=== PATIENT | female | born 1990 | race Caucasian/White ===

== ENCOUNTER 2017-03-03 08:03 | Emergency (ER) | payer OTHER ==
[~2017-03-03] VITALS: Ht 157.5 cm; Wt 99.8 kg
[2017-03-03] MEDS ORDERED: ASPIRIN 81 MG TAB.CHEW PO ONE (08:15)
--- NOTE | 2017-03-03 08:26 | RAD ---
Single view of the Chest 03/03/2017 10:14 AM Indication: chest pain Comparison: None Findings: There is no focal consolidation or infiltrate identified. There is no effusion or pneumothorax. The cardiomediastinal silhouette and pulmonary vasculature are within normal limits. No osseous abnormality is identified. Impression: No evidence of acute cardiopulmonary process.
--- NOTE | 2017-03-03 08:45 | PHYS DOC ---
Past History Past Medical History: Other Additional Past Medical Histor: fatty liver disease, prediabetes and prehypertension Past Surgical History: Cholecystectomy, , Tubal ligation, Other Smoking: Non-smoker Alcohol Use: None Drug Use: None Adult General Chief Complaint Chief Complaint: CHEST PAIN [facility] HPI 26-year-old female patient she had left-sided jaw pain 4 days ago and was seen at [facility] and treated for dental infection with amoxicillin and Vicoprofen. Patient states she had multiple episodes of vomiting 3 days ago and diarrhea yesterday after taking pain medication on amoxicillin and a stop taking medication. Patient states she was seen by her dentist and had x-ray of her tooth without finding any abnormality in her teeth. Patient states the pain was gradually improved. Patient stated this morning she felt sudden onset of left-sided stabbing pain with radiation to her shoulder and left jaw as a constant pain that gradually getting worse. Patient stated the pain was 5/10 and increases to 9/10 at arrival to ER. Patient complaining of increasing pain with eating and holding her breath because of pain. Patient complaining of increasing nausea that she has had for the last 3 days without dizziness and palpitation and cough and congestion. Patient denies history of chest pain. Patient has positive family history of coronary artery disease. She denies history of DVT and PE or recent immobilization. Review of Systems Review of Systems Constitutional: Denies fever or chills [] Eyes: Denies change in visual acuity, redness, or eye pain [] HENT: Denies nasal congestion or sore throat [] Respiratory: Denies cough or shortness of breath [] Cardiovascular: No additional information not addressed in HPI [] GI: Denies abdominal pain, bloody stools, reports nausea vomiting and diarrhea : Denies dysuria or hematuria [] Musculoskeletal: Denies back pain or joint pain [] Integument: Denies rash or skin lesions [] Neurologic: Denies headache, focal weakness or sensory changes [] Endocrine: Denies polyuria or polydipsia [] All other systems were reviewed and found to be within normal limits, except as documented in this note. Current Medications Current Medications Current Medications Medications (Trade) Dose Ordered Sig/Earnestine Start Time Stop Time Status Last Admin Dose Admin Aspirin (Children'S Aspirin) 324 mg 1X ONCE 03/03/17 08:15 03/03/17 08:26 DC 03/03/17 08:22 324 MG Allergies Allergies Allergies Coded Allergies Type Severity Reaction Last Updated Verified acetaminophen Allergy Intermediate 03/03/17 Yes oxycodone Allergy Intermediate 03/03/17 Yes Physical Exam Physical Exam Constitutional: Well developed, well nourished, mild distress, non-toxic appearance, anxious HENT: Normocephalic, atraumatic, bilateral external ears normal, oropharynx moist, no oral exudates, nose normal. [] Eyes: PERRLA, EOMI, conjunctiva normal, no discharge. [] Neck: Normal range of motion, no tenderness, supple, no stridor. [] Cardiovascular:Heart rate regular rhythm, no murmur [] Lungs & Thorax: Bilateral breath sounds clear to auscultation [] Abdomen: Bowel sounds normal, soft, no tenderness, no masses, no pulsatile masses. [] Skin: Warm, dry, no erythema, no rash. [] Back: No tenderness, no CVA tenderness. [] Extremities: No tenderness, no cyanosis, no clubbing, ROM intact, no edema. [] Neurologic: Alert and oriented X 3, normal motor function, normal sensory function, no focal deficits noted. [] Psychologic: Affect normal, judgement normal, mood normal. [] Current Patient Data Vital Signs Vital Signs Date Time Temp Pulse Resp B/P (MAP) Pulse Ox O2 Delivery O2 Flow Rate FiO2 03/03/17 08:12 97.8 89 16 99 Room Air EKG EKG EKG interpreted by me. EKG at 0 816 showed normal sinus rhythm at rate of 82, no acute ST and T-wave elevation,[] Radiology/Procedures Radiology/Procedures [Chest x-ray and CT chest was unremarkable] Course & Med Decision Making Course & Med Decision Making Pertinent Labs and Imaging studies reviewed. (See chart for details) Evaluation of patient in ER showed 26-year-old male patient with complaining of left-sided chest pain that patient for shoulder and jaw. Patient had increasing of pain with movement of her shoulder. Patient had unremarkable labs elevation of d-dimer with negative CT of chest for PE. Patient treated with Toradol and felt better. Patient recently treated with amoxicillin and Vicoprofen for jaw pain and developed diarrhea and nausea and vomiting and stopped taking medication. She was with Toradol in ER and felt better. Plan discharge patient home with diagnosis of musculoskeletal chest wall pain and medication side effect. Patient doesn't want pain medication for home. [] Dragon Disclaimer Dragon Disclaimer This electronic medical record was generated, in whole or in part, using a voice recognition dictation system. Departure Departure: Impression: Primary Impression: Musculoskeletal chest pain Additional Impressions: Medication side effects Sprain of jaw, left side, initial encounter Disposition: HOME, SELF-CARE (@1059) Condition: IMPROVED Referrals: ERIKA OLIVAREZ MD (PCP) Patient Instructions: Musculoskeletal Pain Additional Instructions: Apply ice on your chest Take ibuprofen as needed for pain Follow-up with your primary care physician in 3-5 days if he is not getting better Problem Qualifiers THEODORE CHAKRABORTY MD Mar 03, 2017 08:45
[2017-03-03 08:47] LABS: BASO % 0 % (0-3); EOS % 1 % (0-3); HEMATOCRIT 39.5 % (36.0-47.0); LYMPH # 1.4 x10^3/uL (1.0-4.8); LYMPH % 23 % (24-48); MEAN CORPUSCULAR HEMOGLOBIN 32 pg (25-35); MEAN CORPUSCULAR HGB CONC 35 g/dL (31-37); MEAN CORPUSCULAR VOLUME 90 fL (79-100); MONO # 0.5 x10^3/uL (0.0-1.1); MONO % 8 % (0-9); NEUT # 4.1 x10^3uL (1.8-7.7); NEUT % 68 % (31-73); PLATELET COUNT 181 x10^3/uL (140-400); RED BLOOD COUNT 4.38 x10^6/uL (3.50-5.40); RED CELL DISTRIBUTION WIDTH 12.6 % (11.5-14.5)
[2017-03-03] MEDS ORDERED: KETOROLAC 30 MG/ML VIAL. IV ONE (09:00)
[2017-03-03 09:05] LABS: ALBUMIN 3.6 g/dL (3.4-5.0); ALBUMIN/GLOBULIN RATIO 0.9 (1.0-1.7); ALK PHOS 90 U/L (46-116); ALT (SGPT) 152 U/L (14-59); ANION GAP 10 (6-14); AST (SGOT) 77 U/L (15-37); BLOOD UREA NITROGEN 11 mg/dL (7-20); BUN/CREATININE RATIO 16 (6-20); CALCIUM 8.7 mg/dL (8.5-10.1); CARBON DIOXIDE 24 mmol/L (21-32); CHLORIDE 105 mmol/L (98-107); CREATINE KINASE 52 U/L (26-192); CREATININE 0.7 mg/dL (0.6-1.0); GFR 99.6; GLUCOSE 106 mg/dL (70-99); POTASSIUM 3.9 mmol/L (3.5-5.1); SODIUM 139 mmol/L (136-145); TOTAL BILIRUBIN 0.6 mg/dL (0.2-1.0); TOTAL PROTEIN 7.6 g/dL (6.4-8.2)
[2017-03-03] MEDS ORDERED: IOHEXOL 300 MG/ML 75 ML VIAL. IV ONE (10:00)
[2017-03-03] MEDS ORDERED: CONTRAST GIVEN MC PRN (10:00)
--- NOTE | 2017-03-03 10:41 | RAD ---
CTA of the chest with contrast (pulmonary embolism protocol) 03/03/2017 Clinical History: Chest pain and elevated d-dimer. Technique: After the intravenous administration of 75 mL of Omnipaque 300, contiguous, 0.625 mm axial sections were obtained through the chest. 2 mm reconstructed axial and 3D MIP coronal and sagittal reconstructed images were obtained. One or more of the following individualized dose reduction techniques were utilized for this study: 1. Automated exposure control. 2. Adjustment of the mA and/or kV according to patient size. 3. Use of iterative reconstruction technique. Findings: Comparison is made to patient's portable chest radiograph performed earlier today. No filling defects are seen within the major branches of either pulmonary artery. The heart is borderline enlarged. The thoracic aorta tapers normally. Minimal dependent subsegmental atelectasis is seen involving both lungs. A 3 mm calcified granuloma is seen involving the superior aspect of the left lower lobe. No area of consolidation is seen. No pneumothorax or pleural effusion is noted. Impression: There is no CT evidence of pulmonary embolism.
[2017-03-03 10:59] VITALS: BP 120/89
--- NOTE | 2017-03-03 11:55 | EKG ---
[address] [address] Test Date: 2017-03-03 Test Time: 08:16:25 Pat Name: KHADAR SULLIVAN Department: Room: Gender: F Revit Drafter: MARILEE : 1990 Requested By: THEODORE CHAKRABORTY Order Number: [id number] Reading MD: Measurements Intervals [place] Rate: 82 P: 61 W[place]: 144 QRS: 49 QRSD: 76 T: 18 QT: 378 QTc: 445 Interpretive Statements SINUS RHYTHM QRS(T) CONTOUR ABNORMALITY CONSIDER INFERIOR MYOCARDIAL DAMAGE POSSIBLY ABNORMAL ECG RI6.01 Unconfirmed report No previous ECG available for comparison
== END 2017-03-03 11:04 | disposition home or self-care (01) ==
LOC: ER 08:03
DX: R11.2 Nausea with vomiting, unspecified (principal); R19.7 Diarrhea, unspecified; T36.0X5A Adverse effect of penicillins, initial encounter; T39.315A Adverse effect of propionic acid derivatives, initial encounter; S03.42XA Sprain of jaw, left side, initial encounter; R07.89 Other chest pain; Z88.6 Allergy status to analgesic agent; Z88.5 Allergy status to narcotic agent; X58.XXXA Exposure to other specified factors, initial encounter; Y93.89 Activity, other specified; Y99.8 Other external cause status; Y92.89 Other specified places as the place of occurrence of the external cause
CPT/HCPCS: 36415; 71010; 71275; 80053; 82553; 83735; 83880; 84484; 85025; 85379; 93005; 96374; 99285; J1885; Q9967

== ENCOUNTER 2019-03-27 08:44 | Emergency (ER) | payer OTHER ==
[~2019-03-27] VITALS: Ht 157.5 cm; Wt 61.7 kg
[2019-03-27] MEDS ORDERED: ONDANSETRON PF 4 MG/2 ML VIAL. IVP ONE (09:15)
[2019-03-27] MEDS ORDERED: IV NORMAL SALINE 1,000ML 1,000 ML IV ONE (09:15)
--- NOTE | 2019-03-27 09:39 | PHYS DOC ---
Past History Past Medical History: Anxiety, Depression, GERD Additional Past Medical Histor: fatty liver disease, prediabetes and prehypertension Past Surgical History: , Other Additional Past Surgical Histo: gastic bypass, uterine ablation Smoking: Non-smoker Alcohol Use: None Drug Use: None Adult General Chief Complaint Chief Complaint: NAUSEA/VOMITING/DIARRHEA HPI HPI 28-year-old female presents with nausea and vomiting. Patient has a gastric sleeve 2 years ago. She has had difficulty with heartburn and vomiting since that time. She takes Zofran frequently. She's been unable to keep down her Zofran and other solids and liquids since yesterday and decided to come emergency room. She denies fever or chills. She has had some congestion and a cough. She denies diarrhea. She denies any other complaints at this time. Review of Systems Review of Systems Constitutional: Denies fever or chills [] Eyes: Denies change in visual acuity, redness, or eye pain [] HENT: Denies nasal congestion or sore throat [] Respiratory: Denies cough or shortness of breath [] Cardiovascular: No additional information not addressed in HPI [] GI: nausea, vomiting. Denies abdominal pain, bloody stools or diarrhea [] : Denies dysuria or hematuria [] Musculoskeletal: Denies back pain or joint pain [] Integument: Denies rash or skin lesions [] Neurologic: Denies headache, focal weakness or sensory changes [] Endocrine: Denies polyuria or polydipsia [] All other systems were reviewed and found to be within normal limits, except as documented in this note. Current Medications Current Medications Current Medications Medications (Trade) Dose Ordered Sig/Earnestine Start Time Stop Time Status Last Admin Dose Admin Ondansetron HCl (Zofran) 4 mg 1X ONCE 03/27/19 09:15 03/27/19 09:16 DC 03/27/19 09:35 4 MG Sodium Chloride 1,000 ml @ 1,000 mls/hr 1X ONCE 03/27/19 09:15 03/27/19 10:14 03/27/19 09:34 1,000 MLS/HR Allergies Allergies Allergies Coded Allergies Type Severity Reaction Last Updated Verified acetaminophen Allergy Intermediate 03/03/17 Yes amoxicillin Allergy Intermediate nausea/vomitting 04/21/18 Yes oxycodone Allergy Intermediate 03/03/17 Yes Physical Exam Physical Exam Constitutional: Well developed, well nourished, no acute distress, non-toxic appearance. [] HENT: Normocephalic, atraumatic, bilateral external ears normal, oropharynx moist, no oral exudates, nose normal. [] Eyes: PERRLA, EOMI, conjunctiva normal, no discharge. [] Neck: Normal range of motion, no tenderness, supple, no stridor. [] Cardiovascular:Heart rate regular rhythm, no murmur [] Lungs & Thorax: Bilateral breath sounds clear to auscultation [] Abdomen: Bowel sounds normal, soft, no tenderness, no masses, no pulsatile masses. [] Skin: Warm, dry, no erythema, no rash. [] Back: No tenderness, no CVA tenderness. [] Extremities: No tenderness, no cyanosis, no clubbing, ROM intact, no edema. [] Neurologic: Alert and oriented X 3, normal motor function, normal sensory function, no focal deficits noted. [] Psychologic: Affect normal, judgement normal, mood normal. [] Current Patient Data Vital Signs Vital Signs Date Time Temp Pulse Resp B/P (MAP) Pulse Ox O2 Delivery O2 Flow Rate FiO2 03/27/19 09:08 97.6 80 18 98 Room Air EKG EKG [] Radiology/Procedures Radiology/Procedures [] Course & Med Decision Making Course & Med Decision Making Pertinent Labs and Imaging studies reviewed. (See chart for details) The patient's labs are unremarkable. We have given her a liter normal saline and 4 mg of Zofran IV. We will do a by mouth challenge. I also ordered 40 mg of Protonix IV as the patient cannot take PPI occasions by mouth because capsules make her vomit. She takes all of her medications as liquid. The patient has been able to keep down fluids. She feels a bit better at this time. I will discharge her with Zofran ODT instead of tablets. Her urinalysis is unremarkable. She is stable for discharge at this time. [] Dragon Disclaimer Dragon Disclaimer This electronic medical record was generated, in whole or in part, using a voice recognition dictation system. Departure Departure: Impression: Primary Impression: Nausea & vomiting Additional Impression: GERD (gastroesophageal reflux disease) Disposition: 01 HOME, SELF-CARE Condition: IMPROVED Referrals: ERIKA OLIVAREZ MD (PCP) Patient Instructions: Gastroesophageal Reflux Disease, Adult, [id number], Nausea and Vomiting, [id number] Scripts Ondansetron (ONDANSETRON ODT) 4 Mg Tab.rapdis 1 TAB PO PRN Q6-8HRS PRN for VOMITING, #16 TAB Prov: MINDA SNOWDEN DO 03/27/19 Problem Qualifiers Primary Impression: Nausea & vomiting Vomiting type: unspecified Vomiting Intractability: non-intractable Qualified Codes: R11.2 - Nausea with vomiting, unspecified Additional Impression: GERD (gastroesophageal reflux disease) Esophagitis presence: with esophagitis Qualified Codes: K21.0 - Gastro- esophageal reflux disease with esophagitis MINDA SNOWDEN DO Mar 27, 2019 09:39
[2019-03-27 09:41] LABS: BASO % 1 % (0-3); EOS # 0.1 x10^3/uL (0.0-0.7); EOS % 1 % (0-3); HEMATOCRIT 40.2 % (36.0-47.0); HEMOGLOBIN 14.2 g/dL (12.0-15.5); LYMPH # 2.1 x10^3/uL (1.0-4.8); LYMPH % 29 % (24-48); MEAN CORPUSCULAR HEMOGLOBIN 33 pg (25-35); MEAN CORPUSCULAR HGB CONC 35 g/dL (31-37); MEAN CORPUSCULAR VOLUME 92 fL (79-100); MONO # 0.4 x10^3/uL (0.0-1.1); MONO % 5 % (0-9); NEUT # 4.6 x10^3uL (1.8-7.7); NEUT % 64 % (31-73); PLATELET COUNT 188 x10^3/uL (140-400); RED BLOOD COUNT 4.35 x10^6/uL (3.50-5.40); RED CELL DISTRIBUTION WIDTH 12.7 % (11.5-14.5); WHITE BLOOD COUNT 7.1 x10^3/uL (4.0-11.0)
[2019-03-27 09:48] LABS: CALCIUM 8.5 mg/dL (8.5-10.1); CREATININE 0.7 mg/dL (0.6-1.0); GFR 98.3; POTASSIUM 3.7 mmol/L (3.5-5.1)
[2019-03-27 09:53] LABS: ALBUMIN 3.8 g/dL (3.4-5.0); ALBUMIN/GLOBULIN RATIO 1.1 (1.0-1.7); TOTAL BILIRUBIN 0.8 mg/dL (0.2-1.0); TOTAL PROTEIN 7.2 g/dL (6.4-8.2)
[2019-03-27] MEDS ORDERED: ONDA4TAB12 PO (10:00)
[2019-03-27 10:09] LABS: BACTERIA,URINE FEW /HPF (0-FEW); BILIRUBIN,URINE NEG (NEG); CLARITY,URINE HAZY; COLOR,URINE YELLOW; GLUCOSE,URINE NEG (NEG); NITRITE,URINE NEG (NEG); SQUAMOUS EPITHELIAL CELL,UR MANY /LPF; UROBILINOGEN,URINE 0.2 mg/dL (0.2 mg/dL)
[2019-03-27] MEDS ORDERED: PANTOPRAZOLE IV 40 MG VIAL. IVP ONE (10:15)
[2019-03-27 10:32] VITALS: BP 114/72
== END 2019-03-27 10:30 | disposition home or self-care (01) ==
LOC: ER 08:44
DX: K21.0 Gastro-esophageal reflux disease with esophagitis (principal); R11.2 Nausea with vomiting, unspecified; Z98.84 Bariatric surgery status; Z88.6 Allergy status to analgesic agent; Z88.1 Allergy status to other antibiotic agents; Z88.5 Allergy status to narcotic agent
CPT/HCPCS: 36415; 80053; 81001; 85025; 96361; 96374; 96375; 99284; C9113; J2405; J7030

== ENCOUNTER 2019-10-22 15:03 | Emergency (ER) | payer OTHER ==
[~2019-10-22] VITALS: Ht 157.5 cm; Wt 70.9 kg
[~2019-10-22 15:03] MED LIST: ONDA4TAB12 PO
[2019-10-22 16:07] LABS: BACTERIA,URINE 0 /HPF (0-FEW); BILIRUBIN,URINE NEG (NEG); CLARITY,URINE CLEAR; COLOR,URINE YELLOW; GLUCOSE,URINE NEG (NEG); NITRITE,URINE NEG (NEG); RBC,URINE 0 /HPF (0-2); SQUAMOUS EPITHELIAL CELL,UR MOD /LPF; UROBILINOGEN,URINE 0.2 mg/dL (0.2 mg/dL); WBC,URINE 0 /HPF (0-4)
--- NOTE | 2019-10-22 16:44 | PHYS DOC ---
Past History Past Medical History: Anxiety, Depression, GERD, Kidney Stones Additional Past Medical Histor: fatty liver disease Past Surgical History: , Other Additional Past Surgical Histo: gastic SLEEVE, uterine ablation Smoking: Non-smoker Alcohol Use: Occasionally Drug Use: None General Adult EDM: Chief Complaint: BACK PAIN OR INJURY HPI: HPI: The history was obtained from the patient. Patient is a 28-year-old female with PMH endometrial ablation, intermittent urticaria who presents with a chief complaint of right flank pain. Patient states she typically gets right flank pain after she stops taking steroids. She notes that she has been intermittently on steroids over the past several months due to intermittent rashes. She states she has had a fairly extensive work-up including autoimmune evaluation without identifiable cause. She notes that she did develop somewhat of a rash 2 days ago and started taking steroids at home. She states she subsequently developed right flank pain yesterday. She notes the pain is somewhat constant. She states nothing seems to help with the pain. She has tried Tylenol only given her history of gastric bypass. She denies any syncope. She notes a history of kidney stone but but states she was asymptomatic when she was diagnosed with this. She denies any dysuria or hematuria. She denies any vaginal bleeding or discharge. She states she is not regularly menstruate. She denies any cough or shortness of breath. She denies any chest pain or syncope. No other complaints. Review of Systems: Review of Systems: Constitutional: Denies fever or chills Eyes: Denies change in visual acuity HENT: Denies nasal congestion or sore throat Respiratory: Denies cough or shortness of breath Cardiovascular: Denies chest pain or edema GI: Denies abdominal pain, nausea, vomiting, bloody stools or diarrhea : Denies dysuria Musculoskeletal: Positive for flank pain Integument: Denies rash Neurologic: Denies headache, focal weakness or sensory changes Endocrine: Denies polyuria or polydipsia Lymphatic: Denies swollen glands Psychiatric: Denies depression or anxiety Heart Score: Risk Factors: Risk Factors: DM, Current or recent (<one month) smoker, HTN, HLP, family history of CAD, obesity. Risk Scores: Score 0 - 3: 2.5% MACE over next 6 weeks - Discharge Home Score 4 - 6: 20.3% MACE over next 6 weeks - Admit for Clinical Observation Score 7 - 10: 72.7% MACE over next 6 weeks - Early Invasive Strategies Current Medications: Current Meds: Current Medications Medications (Trade) Dose Ordered Sig/[facility] Start Time Stop Time Status Last Admin Dose Admin Iohexol (Omnipaque 300 Mg/ml) 75 ml 1X ONCE 10/22/19 16:45 10/22/19 16:46 Morphine Sulfate (Morphine 4mg Syringe) 4 mg 1X ONCE 10/22/19 16:45 10/22/19 16:46 Sodium Chloride 1,000 ml @ 1,000 mls/hr 1X ONCE 10/22/19 16:45 10/22/19 17:44 Allergies: Allergies: Allergies Coded Allergies Type Severity Reaction Last Updated Verified amoxicillin Allergy Intermediate nausea/vomitting 04/21/18 Yes oxycodone Allergy Intermediate 03/03/17 Yes Physical Exam: PE: Constitutional: Well developed, well nourished, no acute distress, non-toxic appearance. [] HENT: Normocephalic, atraumatic, bilateral external ears normal, oropharynx moist, no oral exudates, nose normal. [] Eyes: PERRLA, EOMI, conjunctiva normal, no discharge. [] Neck: Normal range of motion, no tenderness, supple, no stridor. [] Cardiovascular:Heart rate regular rhythm, no murmur [] Lungs & Thorax: Bilateral breath sounds clear to auscultation [] Abdomen: soft, no tenderness, no masses, no pulsatile masses. [] Skin: Warm, dry, no erythema, no rash. [] Back: Mild reproducible right CVA tenderness. My back exam Extremities: No tenderness, no cyanosis, no clubbing, ROM intact, no edema. [] Neurologic: Alert and oriented X 3, normal motor function, normal sensory function, no focal deficits noted. [] Psychologic: Affect normal, judgement normal, mood normal. [] Current Patient Data: Labs: Laboratory Tests Test 10/22/19 15:25 10/22/19 15:38 10/22/19 16:42 Urine Collection Type Unknown Urine Color Yellow Urine Clarity Clear Urine pH 6.5 Urine Specific [place] 1.010 Urine Protein Neg Urine Glucose (UA) Neg mg/dL Urine Ketones (Stick) Trace mg/dL Urine Blood Neg Urine Nitrite Neg Urine Bilirubin Neg Urine Urobilinogen Dipstick 0.2 mg/dL Urine Leukocyte Esterase Neg Urine RBC 0 /HPF Urine WBC 0 /HPF Urine Squamous Epithelial Cells Mod /LPF Urine Bacteria 0 /HPF Bedside Urine HCG, Qualitative hcg negative White Blood Count 8.8 x10^3/uL Red Blood Count 4.37 x10^6/uL Hemoglobin 14.2 g/dL Hematocrit 40.5 % Mean Corpuscular Volume 93 fL Mean Corpuscular Hemoglobin 33 pg Mean Corpuscular Hemoglobin Concent 35 g/dL Red Cell Distribution Width 12.9 % Platelet Count 239 x10^3/uL Neutrophils (%) (Auto) 92 % Lymphocytes (%) (Auto) 7 % Monocytes (%) (Auto) 1 % Eosinophils (%) (Auto) 0 % Basophils (%) (Auto) 0 % Neutrophils # (Auto) 8.1 x10^3uL Lymphocytes # (Auto) 0.6 x10^3/uL Monocytes # (Auto) 0.1 x10^3/uL Eosinophils # (Auto) 0.0 x10^3/uL Basophils # (Auto) 0.0 x10^3/uL Platelet Estimate Pending Sodium Level 140 mmol/L Potassium Level 3.8 mmol/L Chloride Level 104 mmol/L Carbon Dioxide Level 24 mmol/L Anion Gap 12 Blood Urea Nitrogen 4 mg/dL Creatinine 0.9 mg/dL Estimated GFR (Cockcroft-Gault) 73.5 Glucose Level 116 mg/dL Calcium Level 8.8 mg/dL Total Bilirubin 0.4 mg/dL Direct Bilirubin 0.1 mg/dL Aspartate Amino Transf (AST/SGOT) 15 U/L Alanine Aminotransferase (ALT/SGPT) 18 U/L Alkaline Phosphatase 80 U/L Total Protein 7.7 g/dL Albumin 3.7 g/dL Lipase 93 U/L Current Medications Medications (Trade) Dose Ordered Sig/Earnestine Route PRN Reason Start Time Stop Time Status Last Admin Dose Admin Sodium Chloride 1,000 ml @ 1,000 mls/hr 1X ONCE IV 10/22/19 16:45 10/22/19 17:44 10/22/19 16:44 Morphine Sulfate (Morphine 4mg Syringe) 4 mg 1X ONCE IV 10/22/19 16:45 10/22/19 16:46 DC 10/22/19 16:42 Iohexol (Omnipaque 300 Mg/ml) 75 ml 1X ONCE IV 10/22/19 16:45 10/22/19 16:46 DC 10/22/19 16:48 Laboratory Tests Test 10/22/19 15:25 10/22/19 15:38 Urine Collection Type Unknown Urine Color Yellow Urine Clarity Clear Urine pH 6.5 Urine Specific [place] 1.010 Urine Protein Neg (NEG-TRACE) Urine Glucose (UA) Neg mg/dL (NEG) Urine Ketones (Stick) Trace mg/dL (NEG) Urine Blood Neg (NEG) Urine Nitrite Neg (NEG) Urine Bilirubin Neg (NEG) Urine Urobilinogen Dipstick 0.2 mg/dL (0.2 mg/dL) Urine Leukocyte Esterase Neg (NEG) Urine RBC 0 /HPF (0-2) Urine WBC 0 /HPF (0-4) Urine Squamous Epithelial Cells Mod /LPF Urine Bacteria 0 /HPF (0-FEW) POC Urine HCG, Qualitative hcg negative (Negative) Vital Signs: Vital Signs Date Time Temp Pulse Resp B/P (MAP) Pulse Ox O2 Delivery O2 Flow Rate FiO2 10/22/19 15:15 98.1 75 20 111/69 (83) 98 Room Air EKG: EKG: [] Radiology/Procedures: Radiology/Procedures: [][address] [address] IMAGING REPORT Signed PATIENT: KHADAR SULLIVAN ACCOUNT: [id number] : 1990 LOCATION: ER AGE: 28 SEX: F EXAM STATUS: REG ER ORD. PHYSICIAN: ILIANA WALLACE DO REASON: right flank pain PROCEDURE: CT ABD PELV W/ IV CONTRST ONLY PQRS Compliance Statement: One or more of the following individualized dose reduction techniques were utilized for this examination: 1. Automated exposure control 2. Adjustment of the mA and/or kV according to patient size 3. Use of iterative reconstruction technique CT abdomen/pelvis with contrast 10/22/2019 4:25 PM INDICATION: Right flank pain COMPARISON: None available TECHNIQUE: Multiple axial CT images of the abdomen and pelvis were obtained after the intravenous administration of Isovue-370. Coronal and sagittal reformats are provided. FINDINGS: Lung bases are clear. Heart size is within normal limits. Liver, spleen, bilateral adrenal glands, and pancreas are normal in appearance. Gallbladder surgically absent. Abdominal aorta is normal in course and caliber. No pathologically enlarged lymph nodes are identified in abdomen and pelvis. There is no free fluid or free intraperitoneal air. Small and large bowel loops are normal in appearance and caliber. No bowel obstruction or inflammation. Appendix is normal. Kidneys enhance symmetrically. No suspicious renal mass. No calculi are identified in the kidneys, ureters or urinary bladder. Urinary bladder is within normal limits given degree of distention. Uterus and adnexa are normal by CT. Rim-enhancing cyst in the left adnexa measures 1.5 x 1.0 cm suggestive of a corpus luteal cyst. Dropped clips identified in the left paracolic gutter. 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 IMPRESSION: 1. There is a corpus luteal cyst identified in the left adnexa measuring 1.5 x 1.0 cm. No significant free fluid or free intraperitoneal air. 2. 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 No acute fractures identified. 3. Appendix is normal in appearance. No hydronephrosis or obstructive uropathy. Electronically signed by: Neymar Whitaker MD (10/22/2019 5:21 PM) [facility] DICTATED AND SIGNED BY: NEYMAR WHITAKER MD DATE: 10/22/19 172 CC: GARRY MUSTAFA MD; ILIANA WALLACE DO ~ Course & Med Decision Making: Course & Med Decision Making Pertinent Labs and Imaging studies reviewed. (See chart for details) Patient is a 28-year-old female presents with chief complaint of right flank pain. Initial vital signs unremarkable. Exam noted above. Urinalysis shows no evidence of infection. CT imaging shows no signs of kidney stone. Furthermore no evidence of acute etiology regarding her symptoms. Identified ovarian cyst and was relayed to the patient. I do suspect that this is not causing her symptoms. Remainder of work-up is been unremarkable. Patient states that her pain has improved significantly with medication. She is requesting discharge home. I do feel this is overall reasonable. Low suspicion for emergent etiology although the exact cause of her symptoms are unknown. She does state that she has a history of similar symptoms with her steroid usage. Given her history of gastric bypass I encouraged her to continue to take Tylenol. She states muscle relaxants and Lidoderm patches did not help at home therefore this would not be prescribed. Return precautions discussed and understood. Instructed to follow-up with her primary care physician in the next 2 to 3 days. Stable for discharge home. Nery Disclaimer: Nery Disclaimer: This electronic medical record was generated, in whole or in part, using a voice recognition dictation system. Departure Departure: Impression: Primary Impression: Right flank pain Disposition: 01 HOME/RESIDENCE PRIOR TO ADM Condition: STABLE Referrals: GARRY MUSTAFA MD (PCP) Additional Instructions: Please return the emergency department in 24 to 36 hours if her symptoms not improve or worsen. Please follow-up with your primary care physician in the next 2 to 3 days. Justification of Admission: Justification of Admission: Justification of Admission Dx: N/A ILIANA WALLACE DO Oct 22, 2019 16:44
[2019-10-22] MEDS ORDERED: IOHEXOL 300 MG/ML 75 ML VIAL. IV ONE (16:45)
[2019-10-22] MEDS ORDERED: IV NORMAL SALINE 1,000ML 1,000 ML IV ONE (16:45)
[2019-10-22] MEDS ORDERED: MORPHINE SULFATE 4 MG/ML DISP.SYRIN. IV ONE (16:45)
[2019-10-22 16:58] VITALS: BP 99/54
[2019-10-22 17:08] LABS: BASO % 0 % (0-3); EOS % 0 % (0-3); HEMATOCRIT 40.5 % (36.0-47.0); HEMOGLOBIN 14.2 g/dL (12.0-15.5); LYMPH # 0.6 x10^3/uL (1.0-4.8); LYMPH % 7 % (24-48); MEAN CORPUSCULAR HEMOGLOBIN 33 pg (25-35); MEAN CORPUSCULAR HGB CONC 35 g/dL (31-37); MEAN CORPUSCULAR VOLUME 93 fL (79-100); MONO # 0.1 x10^3/uL (0.0-1.1); MONO % 1 % (0-9); NEUT # 8.1 x10^3uL (1.8-7.7); NEUT % 92 % (31-73); PLATELET COUNT 239 x10^3/uL (140-400); RED BLOOD COUNT 4.37 x10^6/uL (3.50-5.40); RED CELL DISTRIBUTION WIDTH 12.9 % (11.5-14.5); WHITE BLOOD COUNT 8.8 x10^3/uL (4.0-11.0)
[2019-10-22 17:11] LABS: CALCIUM 8.8 mg/dL (8.5-10.1); CREATININE 0.9 mg/dL (0.6-1.0); GFR 73.5; POTASSIUM 3.8 mmol/L (3.5-5.1)
[2019-10-22 17:19] LABS: ALBUMIN 3.7 g/dL (3.4-5.0); DIRECT BILIRUBIN 0.1 mg/dL (0.0-0.2); TOTAL BILIRUBIN 0.4 mg/dL (0.2-1.0); TOTAL PROTEIN 7.7 g/dL (6.4-8.2)
--- NOTE | 2019-10-22 17:24 | RAD ---
PQRS Compliance Statement: One or more of the following individualized dose reduction techniques were utilized for this examination: 1. Automated exposure control 2. Adjustment of the mA and/or kV according to patient size 3. Use of iterative reconstruction technique CT abdomen/pelvis with contrast 10/22/2019 4:25 PM INDICATION: Right flank pain COMPARISON: None available TECHNIQUE: Multiple axial CT images of the abdomen and pelvis were obtained after the intravenous administration of Isovue-370. Coronal and sagittal reformats are provided. FINDINGS: Lung bases are clear. Heart size is within normal limits. Liver, spleen, bilateral adrenal glands, and pancreas are normal in appearance. Gallbladder surgically absent. Abdominal aorta is normal in course and caliber. No pathologically enlarged lymph nodes are identified in abdomen and pelvis. There is no free fluid or free intraperitoneal air. Small and large bowel loops are normal in appearance and caliber. No bowel obstruction or inflammation. Appendix is normal. Kidneys enhance symmetrically. No suspicious renal mass. No calculi are identified in the kidneys, ureters or urinary bladder. Urinary bladder is within normal limits given degree of distention. Uterus and adnexa are normal by CT. Rim-enhancing cyst in the left adnexa measures 1.5 x 1.0 cm suggestive of a corpus luteal cyst. Dropped clips identified in the left paracolic gutter. 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 IMPRESSION: 1. There is a corpus luteal cyst identified in the left adnexa measuring 1.5 x 1.0 cm. No significant free fluid or free intraperitoneal air. 2. 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 No acute fractures identified. 3. Appendix is normal in appearance. No hydronephrosis or obstructive uropathy. Electronically signed by: Ximena Maza MD (10/22/2019 5:21 PM) [facility]
[2019-10-22 18:36] LABS: % LYMPHS 8 % (24-48); % MONOS 1 % (0-10); % SEGS 91 % (35-66); PLT ESTIMATE ADEQUATE (ADEQUATE)
== END 2019-10-22 18:05 | disposition home or self-care (01) ==
LOC: ER 15:03
DX: R10.9 Unspecified abdominal pain (principal); R21 Rash and other nonspecific skin eruption; K21.9 Gastro-esophageal reflux disease without esophagitis; Z87.442 Personal history of urinary calculi; Z98.890 Other specified postprocedural states; Z88.1 Allergy status to other antibiotic agents; Z88.5 Allergy status to narcotic agent
CPT/HCPCS: 36415; 74177; 80048; 80076; 81001; 81025; 83690; 85007; 85025; 96361; 96374; 99285; J2270; J7030; Q9967

== ENCOUNTER 2019-12-06 18:31 | Emergency (ER) | payer OTHER ==
[~2019-12-06] VITALS: Ht 157.5 cm; Wt 75.0 kg
[2019-12-06] MEDS ORDERED: KETOROLAC 30 MG/ML VIAL. IM ONE (19:30)
[2019-12-06] MEDS ORDERED: KETOROLAC 30 MG/ML VIAL. ONE (19:38)
[2019-12-06 20:09] LABS: BILIRUBIN,URINE NEG (NEG); CLARITY,URINE CLEAR; COLOR,URINE YELLOW; GLUCOSE,URINE NEG (NEG)
[2019-12-06 20:10] LABS: NITRITE,URINE NEG (NEG)
[2019-12-06 20:16] LABS: RBC,URINE 0 /HPF (0-2)
[2019-12-06 20:17] LABS: BACTERIA,URINE 0 /HPF (0-FEW); WBC,URINE 0 /HPF (0-4)
--- NOTE | 2019-12-06 20:19 | PHYS DOC ---
Past History Past Medical History: Other Additional Past Medical Histor: chronic idiopathic urticaria with angioedema Past Surgical History: Tubal ligation Additional Past Surgical Histo: cervical ablation, gastric sleeve Smoking: Non-smoker Alcohol Use: Rarely Drug Use: None General Adult EDM: Chief Complaint: FEVER HPI: HPI: Patient is a [age] year old [sex] who presents with [] Review of Systems: Review of Systems: Constitutional: Denies fever or chills Eyes: Denies change in visual acuity HENT: Denies nasal congestion or sore throat Respiratory: Denies cough or shortness of breath Cardiovascular: Denies chest pain or edema GI: Denies abdominal pain, nausea, vomiting, bloody stools or diarrhea : Denies dysuria Musculoskeletal: Denies back pain or joint pain Integument: Denies rash Neurologic: Denies headache, focal weakness or sensory changes Endocrine: Denies polyuria or polydipsia Lymphatic: Denies swollen glands Psychiatric: Denies depression or anxiety Heart Score: Risk Factors: Risk Factors: DM, Current or recent (<one month) smoker, HTN, HLP, family history of CAD, obesity. Risk Scores: Score 0 - 3: 2.5% MACE over next 6 weeks - Discharge Home Score 4 - 6: 20.3% MACE over next 6 weeks - Admit for Clinical Observation Score 7 - 10: 72.7% MACE over next 6 weeks - Early Invasive Strategies Current Medications: Current Meds: Current Medications Medications (Trade) Dose Ordered Sig/Earnestine Start Time Stop Time Status Last Admin Dose Admin Ketorolac Tromethamine (Toradol 30mg Vial) 30 mg STK-MED ONCE 12/06/19 19:38 12/06/19 19:38 DC Allergies: Allergies: Allergies Coded Allergies Type Severity Reaction Last Updated Verified amoxicillin Allergy Intermediate nausea/vomitting 04/21/18 Yes oxycodone Allergy Intermediate 03/03/17 Yes Physical Exam: PE: Constitutional: Well developed, well nourished, no acute distress, non-toxic appearance. [] HENT: Normocephalic, atraumatic, bilateral external ears normal, oropharynx moist, no oral exudates, nose normal. [] Eyes: PERRLA, EOMI, conjunctiva normal, no discharge. [] Neck: Normal range of motion, no tenderness, supple, no stridor. [] Cardiovascular:Heart rate regular rhythm, no murmur [] Lungs & Thorax: Bilateral breath sounds clear to auscultation [] Abdomen: Bowel sounds normal, soft, no tenderness, no masses, no pulsatile masses. [] Skin: Warm, dry, no erythema, no rash. [] Back: No tenderness, no CVA tenderness. [] Extremities: No tenderness, no cyanosis, no clubbing, ROM intact, no edema. [] Neurologic: Alert and oriented X 3, normal motor function, normal sensory function, no focal deficits noted. [] Psychologic: Affect normal, judgement normal, mood normal. [] Current Patient Data: Labs: Laboratory Tests Test 12/06/19 19:40 Urine Collection Type Unknown Urine Color Yellow Urine Clarity Clear Urine pH 7.0 Urine Specific [place] 1.020 Urine Protein Neg (NEG-TRACE) Urine Glucose (UA) Neg mg/dL (NEG) Urine Ketones (Stick) Neg mg/dL (NEG) Urine Blood Neg (NEG) Urine Nitrite Neg (NEG) Urine Bilirubin Neg (NEG) Urine Urobilinogen Dipstick 2.0 mg/dL (0.2 mg/dL) Urine Leukocyte Esterase Neg (NEG) Urine RBC 0 /HPF (0-2) Urine WBC 0 /HPF (0-4) Urine Bacteria 0 /HPF (0-FEW) Vital Signs: Vital Signs Date Time Temp Pulse Resp B/P (MAP) Pulse Ox O2 Delivery O2 Flow Rate FiO2 12/06/19 19:02 99.5 110 18 121/75 (90) 99 Room Air EKG: EKG: [] Radiology/Procedures: Radiology/Procedures: [] Course & Med Decision Making: Course & Med Decision Making Pertinent Labs and Imaging studies reviewed. (See chart for details) [] Dragon Disclaimer: Dragon Disclaimer: This electronic medical record was generated, in whole or in part, using a voice recognition dictation system. Departure Departure: Impression: Primary Impression: Fever Qualified Codes: R50.9 - Fever, unspecified Additional Impressions: Chronic idiopathic urticaria Suspected 2019 novel coronavirus infection Disposition: HOME/RESIDENCE PRIOR TO ADM Condition: IMPROVED Referrals: GARRY MUSTAFA MD (PCP) Patient Instructions: Fever, Adult, [id number] Additional Instructions: You have been tested for or diagnosed with COVID-19. It is an infection caused by a new type of coronavirus. COVID-19 will cause cold-like or mild flu symptoms in most. It can cause more severe symptoms like problems breathing in some. There is no treatment for COVID-19. The body will clear the infection over time. Self-care will help to ease discomfort. Steps to Take: Self-Care Rest as needed. Healthy habits may help you feel better. Steps include: Choose healthy foods including fruits and vegetables. Drink water throughout the day. Get plenty of sleep each night. If you smoke, try to quit. It may ease breathing. Avoid alcohol. Keep Others Healthy The virus can spread to others. Droplets are released every time you sneeze or cough. The droplets can get into the mouth, nose, or eyes of people near you and lead to infection. To lower the chances of spreading COVID-19 to others: Stay at home until your doctor has said it is safe to leave. If you tested positive this will mean staying isolated until both of the following are true: At least 7 days have passed since the start of illness. You are free of fever for at least 72 hours without the use of medicine. During this time: - Avoid public areas, events, or transportation. Do not return to work or school until your doctor has said it is safe to do so. - Call ahead if you need to go to a medical center. Let them know you may have COVID-19. It will help them guide you where to go. They may also ask you to wear a facemask when you come to the office. - If you call for emergency medical services, let them know you may have COVID- 19. While at home: - Try to avoid close contact with others. Stay about 6 feet away. - If possible, spend most of your time in a separate room from others. - Use a face mask if you will be in close contact with others such as sharing a room or vehicle. - Have someone wipe down common surfaces in the home. Use household an/ssn 2 4 operator every day on areas like doorknobs, counters, or sinks. - Cough or sneeze into a tissue. Throw the tissue away right after use. If a tissue is not available, cough or sneeze into your elbow. - Wash your hands often. Wash them after sneezing or coughing. Use soap and water and wash for at least 20 seconds. Alcohol based hand radiator cleaner can be used if soap and water is not available. - Do not prepare food for others. Avoid sharing personal items like forks, spoons, or toothbrushes. - Avoid close contact with pets while you are sick. There is no evidence of the virus passing to pets. This is a safety step until more is known about this virus. Isolation can be frustrating. Social interaction can help. Keep in touch with friends and family through phone and tech options. You can still interact with others in your home, just keep a safe distance of about 6 feet. Follow-up: Your doctors office will check in with you to see if there are any changes in your health. You may be asked to keep track of symptoms to share with them. They will also let you know when you are clear to be in public again. Problems to Look Out For: Contact your doctor if your recovery is not going as you expect. Get emergency care if you have problems such as: - Trouble breathing - Nonstop chest pain or pressure - Changes in awareness, confusion, or problems waking - Lips or face have bluish color - Worsening of symptoms If you think you have an emergency, call for emergency medical services right away. As taken from [facility] Justification of Admission: Justification of Admission: Justification of Admission Dx: N/A LARISA CONNELL DO Dec 06, 2019 20:19
[2019-12-06 20:25] VITALS: BP 117/61
[2019-12-06 20:59] LABS: U PREG PATIENT NEGATIVE (NEG)
--- NOTE | 2019-12-11 12:43 | NUR ---
IP: attempt to notify patient of COVID result. Left callback message.
--- NOTE | 2019-12-11 12:54 | NUR ---
IP: notified patient of COVID result.
== END 2019-12-06 20:27 | disposition home or self-care (01) ==
LOC: ER 18:31
DX: L50.1 Idiopathic urticaria (principal); R50.9 Fever, unspecified; Z20.828 Contact with and (suspected) exposure to other viral communicable diseases; Z88.1 Allergy status to other antibiotic agents; Z88.5 Allergy status to narcotic agent
CPT/HCPCS: 81001; 81025; 87070; 87880; 96372; 99283; J1885; U0003